=== PATIENT | male | born 1965 | race Caucasian/White ===

== ENCOUNTER 2016-11-18 11:07 | Emergency (ER) | payer SELFPAY ==
[~2016-11-18] VITALS: Ht 175.3 cm; Wt 80.7 kg
--- OUTSIDE RECORDS SUMMARY | 2016-11-18 11:14 | XMS REPORT ---
Author Author PILLO UMAÑA Organization [facility] Address [address] [place] [address] Care Team Providers Care Parts Clerk Plant Maintenance Name Role Phone UMAÑA PILLO Unavailable PROBLEMS Type Condition ICD9-CM Code SMV40-IT Code Onset Dates Condition Status SNOMED Code Problem Pain in joint, pelvic region and thigh 719.45 Active 809985048 ALLERGIES Substance Reaction Event Type Date Status N.K.D.A. Unknown Non Drug Allergy Nov, Unknown SOCIAL HISTORY No smoking Hx information available PLAN OF CARE Activity Details Follow Up prn Reason: VITAL SIGNS Height 69 in 2015-12-22 Weight 176.0 lbs 2015-12-22 Temperature 99.7 degrees Fahrenheit 2015-12-22 Heart Rate 104 bpm 2015-12-22 Respiratory Rate 18 2015-12-22 BMI 25.99 kg/m2 2015-12-22 Blood pressure systolic 130 mmHg 2015-12-22 Blood pressure diastolic 84 mmHg 2015-12-22 MEDICATIONS Medication Instructions Dosage Frequency Start Date End Date Duration Status Doxycycline Hyclate 100 MG Orally every 12 hrs 1 tablet 12h Nov, Dec, 10 days Active RESULTS Name Result Date Reference Range UA LONG DIP (IN HOUSE) 2015-12-22 Lot # [id number] Exp date 2016-03 Clarity cloudy Color dark yellow Odor none GLU negative ELIDIA 1+ KET 2+ SG >=1.030 BLO 2+ pH 5.5 Protein 1+ URO 1.0 NIT Positive REINA 1+ Lot # [id number] Exp date 2016-09 CULTURE, URINE 2015-12-22 Urine Culture, Routine Final report Result 1 Escherichia coli Antimicrobial Susceptibility Ultrasound : Testicular 2015-12-22 GC/CHLAM URINE (STATE) 2015-12-22 CHLAMYDIA GC PROCEDURES Procedure Date Ordered Related Diagnosis Body Site URINALYSIS, AUTO, W/O SCOPE Dec 22, 2015 URINE CULTURE/COLONY COUNT Dec 22, 2015 Office Visit, Est Pt., Level 3 Dec 22, 2015 TORADOL (IM) 60 MG/2ML (UP TO 15 MG) Dec 22, 2015 No Charge Dec 22, 2015 ROCEPHIN 250 MG (IM) Dec 22, 2015 THER/PROPH/DIAG INJ, SC/IM Dec 22, 2015 IMMUNIZATIONS Vaccine Route Administration Date Status TORADOL (IM) 60 MG/2ML (UP TO 15 MG) IM Intramuscular Dec 22, 2015 Administered ROCEPHIN 250 MG (IM) IM Intramuscular Dec 22, 2015 Administered
--- OUTSIDE RECORDS SUMMARY | 2016-11-18 11:14 | XMS REPORT | Continuity of Care Document ---
Author Author [facility] Address Unknown Phone Unavailable Allergies Medications Problems Date Dx Coded Attending Type Code Diagnosis Diagnosed By 03/02/2013 ENZO GUTIERREZ MD 719.45 PAIN- HIP Procedures Results Encounters ACCT No. Visit Date/Time Discharge Status Pt. Type Provider Facility Loc./Unit Complaint [id number] 03/02/2013 09:03:00 03/02/2013 23: 59:59 CLS Outpatient ENZO GUTIERREZ MD
--- OUTSIDE RECORDS SUMMARY | 2016-11-18 11:14 | XMS REPORT ---
Author NAREN Odonnell Organization [employer] Address Unknown Phone Unavailable Care Team Providers Care Mold Setter Name Role Phone NAREN WOODS CP Unavailable Allergies, Adverse Reactions, Alerts Substance Reaction Event Type N.K.D.A. Info Not Available Non Drug Allergy Problems Problem Type Condition Code Onset Dates Condition Status Problem Pain in joint, pelvic region and thigh 719.45 Active Medications Medication Code System Code Instructions Start Date End Date Status Dosage Doxycycline Hyclate [facility][NOTE 3] [address]-97 100 MG Orally every 12 hrs Dec 22, 2015 Jan 01, 2016 1 tablet Results No Known Results Summary Purpose [employer] Submission
--- NOTE | 2016-11-18 12:21 | ED Hip Pain/Injury ---
General Chief Complaint: Hip/Pelvic Problems Stated Complaint: LT HIP PAIN FELL OUT OF TREE 1 WK AGO Nursing Triage Note: Pt c/o L hip pain after falling from a tree 1 week ago. Pt reports he was able to ambulate on hip after fall but pain and swelling have continued to get worse causing him to be unable to bear weight on hip at this time. Source: patient Exam Limitations: no limitations History of Present Illness Time seen by provider: 12:21 Initial Comments 51-year-old male patient presents to the emergency department complains of left hip pain after falling from a tree one week ago. Reports falling approximately 10-15 feet onto his left hip. States he did not have any pain for approximately 5-6 days and was able to walk normally on the left lower extremity. Denies hitting his head, LOC, neck pain, back pain, numbness, or weakness. Timing/Duration: week Location: hip (L) Method of Injury: fell Modifying Factors: Worse With Movement Allergies and Home Medications Allergies Coded Allergies: No Known Drug Allergies (Unverified , 11/18/16) Home Medications Cyclobenzaprine HCl 10 Mg Tablet, 10 MG PO Q8H PRN for SPASMS, #10 Ref 0 Prescribed by: CARLO DENISE on 11/18/16 1328 Tramadol HCl 50 Mg Tablet, 50 MG PO Q4H PRN for pain, #14 Ref 0 Prescribed by: CARLO DENISE on 11/18/16 1328 Constitutional: no symptoms reported EENTM: no symptoms reported Respiratory: No cough, No short of breath Cardiovascular: No chest pain, No palpitations Gastrointestinal: no symptoms reported Genitourinary: no symptoms reported Musculoskeletal: see HPI, No back pain, joint pain (left hip), No joint swelling, No neck pain Skin: No change in color, No lumps Psychiatric/Neurological: Denies Headache, Denies Numbness, Denies Paresthesia , Denies Seizure, Denies Tingling, Denies Weakness All Other Systems Reviewed Negative Unless Noted: Yes (Negative excepted noted.) Past Lbzleke-Htcxkx-Keyijs Hx Patient Social History Alcohol Use: Regular Use Number of Drinks Today: 0 Alcohol Beverage of Choice: Beer Recreational Drug Use: No Smoking Status: Current Everyday Smoker Type Used: Cigarettes Recent Foreign Travel: No Contact w/Someone Who Travel: No Recent Infectious Disease Expo: No Recent Hopitalizations: No Seasonal Allergies Seasonal Allergies: No Surgeries History of Surgeries: Yes Surgeries: Orthopedic Respiratory History of Respiratory Disorde: No Cardiovascular History of Cardiac Disorders: No Neurological History of Neurological Disord: No Genitourinary History of Genitourinary Disor: No Gastrointestinal History of Gastrointestinal Di: No Musculoskeletal History of Musculoskeletal Dis: No Endocrine History of Endocrine Disorders: No HEENT History of HEENT Disorders: No Cancer History of Cancer: No Psychosocial History of Psychiatric Problem: No Integumentary History of Skin or Integumenta: No Blood Transfusions History of Blood Disorders: No Reviewed Nursing Assessment Reviewed/Agree w Nursing PMH: Yes Family Medical History Significant Family History: No Pertinent Family Hx Physical Exam Vital Signs Vital Sign - Last 12Hours 11/18/16 11:28 Temp 99.3 Pulse 95 Resp 18 B/P (MAP) 140/90 Pulse Ox 97 O2 Delivery Room Air Capillary Refill : Less Than 3 Seconds General Appearance: No Apparent Distress, WD/WN Neck: Full Range of Motion, Normal Inspection, Non Tender, Supple Cardiovascular: Regular Rate, Rhythm, No Edema, No Murmur, Normal Peripheral Pulses Respiratory: Lungs Clear, Normal Breath Sounds, No Accessory Muscle Use, No Respiratory Distress Peripheral Pulses: 2+ Dorsalis Pedis (R), 2+ Left Dors-Pedis (L), 2+ Radial Pulses (R), 2+ Radial Pulses (L) Gastrointestinal: Normal Bowel Sounds, Non Tender, Soft Extremity: Normal Capillary Refill, Normal Inspection (no evidence of ecchymosis, swelling, abrasions, or deformity of the left hip.), Normal Range of Motion, Other (left lateral hip bony and soft tissue tenderness noted. rt hip, bilateral knees, bilateral proximal and distal leg, bilateral ankles, and bilateral feet negative for tenderness, swelling, ecchymosis, or deformity. rt posterior knee shows a 0.5x1.5 cm abrasion without cellulitis.) Neurologic/Psychiatric: Alert, Oriented x3, No Motor/Sensory Deficits, Normal Mood/Affect, float nurse II-XII Norm as Tested Skin: Normal Color, Warm/Dry, No Ecchymosis, Other ( rt posterior knee shows a 0.5x1.5 cm abrasion without cellulitis.) Progress/Results/Core Measures Results/Orders My Orders Orders - CARLO DENISE PA Pelvis With Left Hip 2-3 Views (11/18/16 12:05) Hydrocodone/Apap 10/325 Tablet (Lortab 1 (11/18/16 13:16) Vital Signs/I&O Vital Sign - Last 12Hours 11/18/16 11/18/16 11:28 13:32 Temp 99.3 Pulse 95 65 Resp 18 18 B/P (MAP) 140/90 Pulse Ox 97 98 O2 Delivery Room Air Room Air Blood Pressure Mean: 107 Diagnostic Imaging Diagonstic Imaging: Xray Plain Films/CT/US/NM/MRI: pelvis, hip Comments FINDINGS: AP view of the pelvis and two dedicated radiographic views of the left hip were obtained. There is no fracture, dislocation, bone destruction, or radiopaque foreign body. The visualized pelvic osseous structures and the SI joints demonstrate no acute fracture or dislocation. There is no bone destruction or radiopaque foreign body. The surrounding soft tissue structures are unremarkable. IMPRESSION: 1. No acute fracture or dislocation in the pelvis or left hip joint. Dictated on workstation # [id number] Reviewed: Reviewed by Me (radiology report reviewed by me) Departure Communication (Admissions) Progress Notes Diagnostic findings discussed with the patient. Plan for discharge to home. Impression Impression: Primary Impression: Muscle strain of left hip Qualified Codes: S76.012A - Strain of muscle, fascia and tendon of left hip, initial encounter Disposition: HOME, SELF-CARE Condition: Improved Departure-Patient Inst. Decision time for Depature: 13:26 Referrals: [facility] (PCP/Family) Primary Care Physician Patient Instructions: Muscle Strain (DC) Add. Discharge Instructions: All discharge instructions reviewed with patient and/or family. Voiced understanding. Medications as instructed. Tylenol extra strength over-the- counter as directed for pain. Ibuprofen 800 mg by mouth every 8 hours as needed for pain. Ice packs or heating pad as needed. Avoid heavy lifting, climbing, bending for 3-5 days, then increase activity as tolerated. Follow-up with your primary care physician if no improvement in symptoms in 7-10 days. Return to the emergency department for worsened symptoms or any other concerns. Scripts Cyclobenzaprine HCl (Cyclobenzaprine HCl) 10 Mg Tablet 10 MG PO Q8H Y for SPASMS, #10 TAB 0 Refills Prov: CARLO DENISE 11/18/16 Tramadol HCl (Tramadol HCl) 50 Mg Tablet 50 MG PO Q4H Y for pain, #14 TAB 0 Refills Prov: CARLO DENISE 11/18/16 CARLO DENISE Nov 18, 2016 12:21
[2016-11-18] MEDS ORDERED: HYDROcodone/APAP 10 MG/325 MG (LORTAB) TAB PO STA (13:16)
[2016-11-18] MEDS ORDERED: TRAM50TA2 PO (13:28)
[2016-11-18] MEDS ORDERED: CYCL10TA9 PO (13:28)
[2016-11-18 13:32] VITALS: BP 184/84
== END 2016-11-18 13:32 | disposition home or self-care (01) ==
LOC: EDUNIT# 11:07 → ER 11:10
DX: S76.012A Strain of muscle, fascia and tendon of left hip, initial encounter (principal); F17.210 Nicotine dependence, cigarettes, uncomplicated; Z98.890 Other specified postprocedural states; W14.XXXA Fall from tree, initial encounter
CPT/HCPCS: 99283

== ENCOUNTER 2018-06-19 19:40 | Emergency (ER) | payer SELFPAY ==
[~2018-06-19] VITALS: Ht 175.3 cm; Wt 81.6 kg
[~2018-06-19 19:40] MED LIST: CYCL10TA9 PO; TRAM50TA2 PO
--- NOTE | 2018-06-19 19:54 | ED Lower Extremity ---
General Chief Complaint: Lower Extremity Stated Complaint: R LEG INJ Source: patient Exam Limitations: no limitations History of Present Illness Date Seen by Provider: Jun 19, 2018 Time Seen by Provider: 19:53 Initial Comments To ER by private vehicle accompanied by his with reports of right leg injury. Patient was unloading a trailer, the trailer somehow tipped throwing him up into the air but the foot remained attached to the trailer. She states that his foot was "pointing backwards". The patient himself complains of pain to the anterior proximal tibia and lateral malleolus. He was able to get up and walk and bear weight on this but has reduced sensation in his foot. She states that immediately after this happened he stood up and fell face first and passed out. She also states that he has had about 3 beers tonight Onset: just prior to arrival Severity: moderate Pain/Injury Location: right leg, right ankle Method of Injury: unknown Modifying Factors: Worse With Movement Allergies and Home Medications Allergies Coded Allergies: No Known Drug Allergies (Unverified , 11/18/16) Home Medications Cyclobenzaprine HCl 10 Mg Tablet, 10 MG PO Q8H PRN for SPASMS Prescribed by: CARLO DENISE on 11/18/16 1328 Tramadol HCl 50 Mg Tablet, 50 MG PO Q4H PRN for pain Prescribed by: CARLO DENISE on 11/18/16 1328 Patient Home Medication List Home Medication List Reviewed: Yes Review of Systems Constitutional: see HPI EENTM: see HPI Respiratory: no symptoms reported Cardiovascular: no symptoms reported Genitourinary: no symptoms reported Musculoskeletal: see HPI Skin: no symptoms reported Psychiatric/Neurological: No Symptoms Reported Past Dqqchmx-Hpxmdg-Vaaekk Hx Patient Social History Alcohol Beverage of Choice: Beer Type Used: Cigarettes Recent Foreign Travel: No Contact w/Someone Who Travel: No Recent Hopitalizations: No Seasonal Allergies Seasonal Allergies: No Past Medical History Surgeries: Yes Orthopedic Respiratory: No Cardiac: No Neurological: No Genitourinary: No Gastrointestinal: No Musculoskeletal: No Endocrine: No HEENT: No Cancer: No Psychosocial: No Integumentary: No Blood Disorders: No Family Medical History No Pertinent Family Hx Physical Exam Vital Signs Vital Signs - First Documented 06/19/18 19:42 Temp 98.0 Pulse 96 Resp 18 B/P (MAP) 120/88 (99) Pulse Ox 96 O2 Delivery Room Air Capillary Refill : Height, Weight, BMI Height: 5'9.00" Weight: 178lbs. oz. 80.698914cw; BMI Method:Stated General Appearance: WD/WN, no apparent distress HEENT: PERRL/EOMI, normal ENT inspection Respiratory: no respiratory distress, no accessory muscle use Legs: bilateral leg non-tender, bilateral leg normal inspection, bilateral leg normal range of motion Knees: right knee other (there is tenderness to palpation over the anterior right proximal tibia. No obvious deformity or ecchymosis abrasion or effusion) Ankles: right ankle other ( no ecchymosis abrasion or deformity. The dorsalis pedis pulse on the right is +2 as well as on the left.) Feet: bilateral foot non-tender, bilateral foot normal inspection Neurologic/Psychiatric: alert, normal mood/affect, oriented x 3 Skin: normal color, warm/dry Progress/Results/Core Measures Results/Orders My Orders Orders - LEEANN SAHU APRN Ct Head/Cervical Spine Wo (06/19/18 19:50) Tibia/Fibula, Right, 2 Views (06/19/18 19:57) Foot, Right, 3 View (06/19/18 19:57) Vital Signs/I&O 06/19/18 19:42 Temp 98.0 Pulse 96 Resp 18 B/P (MAP) 120/88 (99) Pulse Ox 96 O2 Delivery Room Air Departure Communication (Admissions) 2055-Lachmans test negative right knee. ABle to lift right foot off of the bed when laying flat. Small ecchymosis overlying patella. Still no effusion. no tenderness to joint line at this time. Right ankle is without swelling or deformity still. Dorsalis pedis pulse +2. Impression Primary Impression: Other ankle sprain and strain Additional Impression: Knee contusion Qualified Codes: S80.01XA - Contusion of right knee, initial encounter Disposition: HOME, SELF-CARE Condition: Stable Departure-Patient Inst. Decision time for Depature: 20:58 Referrals: [facility] (PCP/Family) Primary Care Physician Patient Instructions: NO INSTRUCTIONS GIVEN Add. Discharge Instructions: 1. Tylenol and Motrin for pain control 2. Elevate the ankle and put ice pack on this for 30 minutes at a time every 1- 2 hours for the next 2 days. Use the crutches as needed for pain with walking. When you're able to walk without significant pain then you can stop using the crutches. Follow-up with your doctor next week for any persistent pain to discuss obtaining an MRI. All discharge instructions reviewed with patient and/ or family. Voiced understanding. LEEANN SAHU APRN Jun 19, 2018 19:54
--- NOTE | 2018-06-19 20:11 | Diagnostic Imaging Report ---
INDICATION: Lateral right foot pain. Time of exam: 8:02 PM 3 views of the right foot were obtained. Metatarsals and phalanges are intact. No fractures are seen. There are degenerative changes at the first MTP joint. Midfoot and hindfoot are unremarkable. There is an intramedullary ifrah within the distal tibia. IMPRESSION: No acute bony abnormality is detected. Dictated by: Dictated on workstation # [id number]
--- NOTE | 2018-06-19 20:13 | Diagnostic Imaging Report ---
INDICATION: Right leg pain. TIME OF EXAM: 08:00 p.m. FINDINGS: Multiple views of right tibia and fibula were obtained. There is an intramedullary ifrah transfixing the tibia. There is a healed fracture of the mid shaft of the tibia. Alignment at the knee and ankle appears normal. Ankle mortise is maintained. No acute fractures are identified. IMPRESSION: Postop changes. No acute bony abnormality is detected. Dictated by: Dictated on workstation # [id number]
--- NOTE | 2018-06-19 20:18 | NUR ---
PT BACK FROM RADIOLOGY
--- NOTE | 2018-06-19 20:24 | Diagnostic Imaging Report ---
PROCEDURE: CT head and CT cervical spine without contrast. TECHNIQUE: Multiple contiguous axial images were obtained through the brain and cervical spine without the use of intravenous contrast. Sagittal and coronal reformations through the cervical spine were then performed. Auto Exposure Controls were utilized during the CT exam to meet ALARA standards for radiation dose reduction. INDICATION: Fall. COMPARISON: No prior studies are available for comparison. CT head: FINDINGS: Ventricles and sulci are within normal limits. No sulcal effacement, midline shift, or hemorrhage is detected. Cisterns are patent. Visualized paranasal sinuses are clear. IMPRESSION: No acute intracranial process is identified. CT cervical spine: FINDINGS: Alignment is normal. No fractures are seen. There is mild generalized degenerative disc disease. Prevertebral tissues are normal. Odontoid is intact. No fractures. IMPRESSION: No acute bony abnormality is detected. Dictated by: Dictated on workstation # [id number]
[2018-06-19 21:00] VITALS: BP 124/84
== END 2018-06-19 21:12 | disposition home or self-care (01) ==
LOC: EDUNIT# 19:40 → ER 19:41
DX: S96.911A Strain of unspecified muscle and tendon at ankle and foot level, right foot, initial encounter (principal); S80.01XA Contusion of right knee, initial encounter; Z98.890 Other specified postprocedural states; X50.1XXA Overexertion from prolonged static or awkward postures, initial encounter
CPT/HCPCS: 70450; 72125; 73590; 73630

== ENCOUNTER 2020-09-10 17:20 | Emergency (ER) | payer SELFPAY ==
[~2020-09-10] VITALS: Ht 177 cm; Wt 81.0 kg
[~2020-09-10 17:20] MED LIST changes: -TRAM50TA2 PO; +TRM50T PO
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
[2020-09-10] MEDS ORDERED: RX-AMOX/CLAV. (AUGMENTIN) 500MG TAB PPK#2 PO STA (17:49)
--- NOTE | 2020-09-10 17:54 | Diagnostic Imaging Report ---
INDICATION: Trauma. COMPARISON: None. EXAMINATION: Three views of the left wrist. FINDINGS: No fracture or dislocation. Articular surfaces are age-appropriate. No foreign body seen. IMPRESSION: Negative left wrist. Dictated by: Dictated on workstation # [id number]
[2020-09-10] MEDS ORDERED: INDO25CA99 PO (17:55)
[2020-09-10] MEDS ORDERED: IBUPROFEN 800 MG (MOTRIN) TAB PO ONE (18:00)
[2020-09-10 18:07] VITALS: BP 0/0
== END 2020-09-10 18:07 | disposition home or self-care (01) ==
LOC: EDUNIT# 17:20 → ER 17:24
DX: S60.222A Contusion of left hand, initial encounter (principal); F17.210 Nicotine dependence, cigarettes, uncomplicated; V89.2XXA Person injured in unspecified motor-vehicle accident, traffic, initial encounter
CPT/HCPCS: 73110